=== PATIENT | female | born 1985 | race Two or more races ===

== ENCOUNTER → 2020-08-21 | Outpatient (CLI) | payer OTHER | END | disposition home or self-care (01) | LOC: PRENATAL 08:30 | PROVIDERS: ATTEND Obstetrics & Gynecology Maternal & Fetal Medicine | DX: Z36.89 Encounter for other specified antenatal screening (principal); O36.80X1 Pregnancy with inconclusive fetal viability, fetus 1; Z3A.12 12 weeks gestation of pregnancy ==

== ENCOUNTER → 2020-10-06 | Outpatient (CLI) | payer OTHER | END | disposition home or self-care (01) | LOC: PRENATAL 08:00 | PROVIDERS: ATTEND Obstetrics & Gynecology Maternal & Fetal Medicine | DX: O35.0XX1 Maternal care for (suspected) central nervous system malformation in fetus, fetus 1 (principal); O35.3XX1 Maternal care for (suspected) damage to fetus from viral disease in mother, fetus 1; O98.512 Other viral diseases complicating pregnancy, second trimester; Z36.89 Encounter for other specified antenatal screening; Z3A.19 19 weeks gestation of pregnancy ==

== ENCOUNTER 2020-12-15 15:20 | Outpatient (CLI) | payer OTHER | END 2020-12-15 15:35 | disposition home or self-care (01) | LOC: NST 15:20 | PROVIDERS: ATTEND Specialist | DX: Z34.03 Encounter for supervision of normal first pregnancy, third trimester (principal) ==

== ENCOUNTER → 2021-02-08 | Outpatient (CLI) | payer OTHER | END | disposition home or self-care (01) | LOC: PRENATAL 15:49 | PROVIDERS: ATTEND Obstetrics & Gynecology Maternal & Fetal Medicine | DX: O36.8131 Decreased fetal movements, third trimester, fetus 1 (principal); O26.843 Uterine size-date discrepancy, third trimester; O35.0XX1 Maternal care for (suspected) central nervous system malformation in fetus, fetus 1; Z36.89 Encounter for other specified antenatal screening; Z3A.37 37 weeks gestation of pregnancy ==

== ENCOUNTER 2021-02-21 15:00 | Inpatient (IN) | payer OTHER ==
[~2021-02-21] VITALS: Ht 165.1 cm; Wt 3.2 kg
[2021-03-04] MEDS ORDERED: IRON325 MG PO (21:10)
[2021-03-04] MEDS ORDERED: PRENATAL TABLE1 EAC1 PO (21:10)
[2021-03-04] MEDS ORDERED: FOLIC ACID0.8 M1 PO (21:10)
== END 2021-03-08 13:06 | disposition home or self-care (01) | DRG 788 ==
LOC: LDR 03-01 15:00 → OB/GYN 03-05 17:28
PROVIDERS: ADMIT Specialist; ATTEND Specialist
PROC: 3E0DXGC Introduction of Other Therapeutic Substance into Mouth and Pharynx, External Approach (ICD-10-PCS; 2021-03-04)
PROC: 4A1HXFZ Monitoring of Products of Conception, Cardiac Rhythm, External Approach (ICD-10-PCS; 2021-03-04)
PROC: 10D00Z1 Extraction of Products of Conception, Low, Open Approach (ICD-10-PCS; principal; 2021-03-05 15:00)
DX: O61.0 Failed medical induction of labor (principal); O48.0 Post-term pregnancy; Z37.0 Single live birth; Z3A.40 40 weeks gestation of pregnancy; Z20.822 Contact with and (suspected) exposure to COVID-19

== ENCOUNTER 2021-02-28 10:27 | Outpatient (CLI) | payer OTHER | END 2021-02-28 10:32 | disposition home or self-care (01) | LOC: LAB 10:27 | PROVIDERS: ATTEND Specialist | DX: N30.00 Acute cystitis without hematuria (principal); Z34.03 Encounter for supervision of normal first pregnancy, third trimester ==

== ENCOUNTER → 2021-02-28 | Outpatient (CLI) | payer OTHER ==
[~2021-02-28] MED LIST: FOLIC ACID0.8 M1 PO; IRON325 MG PO; PRENATAL TABLE1 EAC1 PO
== END | disposition home or self-care (01) ==
LOC: PRENATAL 09:00
PROVIDERS: ATTEND Obstetrics & Gynecology Maternal & Fetal Medicine
DX: O26.843 Uterine size-date discrepancy, third trimester (principal); O36.8131 Decreased fetal movements, third trimester, fetus 1; O35.0XX1 Maternal care for (suspected) central nervous system malformation in fetus, fetus 1; Z36.89 Encounter for other specified antenatal screening; Z3A.39 39 weeks gestation of pregnancy

== ENCOUNTER 2024-06-03 11:01 | Outpatient (CLI) | payer OTHER | END 2024-06-03 11:58 | disposition home or self-care (01) | LOC: NST 11:01 | PROVIDERS: ATTEND Obstetrics & Gynecology Maternal & Fetal Medicine | DX: Z34.83 Encounter for supervision of other normal pregnancy, third trimester (principal) ==

== ENCOUNTER 2024-06-08 11:30 | Outpatient (CLI) | payer OTHER | END 2024-06-08 13:15 | disposition home or self-care (01) | LOC: NST 11:30 | PROVIDERS: ATTEND Obstetrics & Gynecology | DX: Z34.83 Encounter for supervision of other normal pregnancy, third trimester (principal) ==

== ENCOUNTER 2024-06-15 10:42 | Outpatient (CLI) | payer OTHER | END 2024-06-15 11:35 | disposition home or self-care (01) | LOC: NST 10:42 | PROVIDERS: ATTEND Obstetrics & Gynecology Gynecology | DX: Z34.83 Encounter for supervision of other normal pregnancy, third trimester (principal) ==

== ENCOUNTER 2024-06-24 09:53 | Outpatient (CLI) | payer OTHER | END 2024-06-24 13:07 | disposition home or self-care (01) | LOC: NST 09:53 | PROVIDERS: ATTEND Obstetrics & Gynecology Gynecology | DX: Z34.83 Encounter for supervision of other normal pregnancy, third trimester (principal) ==

== ENCOUNTER 2024-06-24 13:29 | Inpatient (IN) | payer OTHER ==
[~2024-06-24] VITALS: Ht 165.1 cm; Wt 2.3 kg
[2024-06-24 14:41] LABS: URINE APPEARANCE Clear; URINE BILIRRUBIN Negative (NEGATIVE); URINE BLOOD Negative; URINE COLOR Yellow; URINE GLUCOSE Negative (NEGATIVE); URINE KETONE Trace (NEGATIVE); URINE LEUKOCYTE Trace; URINE NITRATE Negative; URINE PROTEIN Negative (NEGATIVE)
[2024-06-24 14:43] LABS: HEMOGLOBIN 12.3 g/dL (12.0-15.00); MEAN CELL VOLUME 84.1 fL (80.00-100.00); MEAN CORPUSCULAR HEMOGLOBIN 28.7 pg (27.00-32.0); MEAN CORPUSCULAR HGB CONC 34.2 g/dl (32.0-36.0); RED BLOOD COUNT 4.29 M/uL (4.00-6.00)
[2024-06-24 14:45] LABS: URINE BACTERIA 5641.9 uL (0.0-1933); URINE RBC 11.4 uL (0.0-20.8)
[2024-06-24 14:45] LABS: PLATELET COUNT 163 K/uL (150-450); RED CELL DISTRIBUTION WIDTH 16.7 % (11.5-14.5)
[2024-06-24 15:06] LABS: INR < 0.93; PARTIAL THROMBOPLASTIN TIME 24.8 SECONDS (22.0-34.0)
[2024-06-24 15:42] LABS: ALBUMIN 2.7 gm/dL (3.4-5.0); BILIRUBIN TOTAL 0.37 mg/dL (0.3-1.2); CALCIUM 9.3 mg/dL (8.5-10.1); CREATININE SERUM 0.59 mg/dL (0.55-1.02); GFR 114.69; GLOBULINA 3.2 G/DL (2.4-3.5); POTASSIUM 4.77 mEq/L (3.5-5.1); TOTAL PROTEIN 5.9 gm/dL (6.4-8.2)
[2024-06-24 15:55] LABS: URINE CAST 0.91 uL (0.0-1.40)
[2024-06-30 08:26] VITALS: BP 117/75
[2024-06-30] MEDS ORDERED: CEFAZOLIN SODIUM 1,000 MG VIAL IV ONE (11:45)
[2024-06-30] MEDS ORDERED: CITRIC ACID/SODIUM CITRATE 30 ML BLIST.PACK PO ONE (11:45)
[2024-06-30] MEDS ORDERED: OXYTOCIN 10 UNITS/ML VIAL IV ONE (12:30)
[2024-06-30] MEDS ORDERED: ERYTHROMYCIN BASE OPHT 1GM EACH TUBE OP ONE (12:30)
[2024-06-30] MEDS ORDERED: OXYTOCIN 1,000 ML IV ONE (13:15)
[2024-06-30] MEDS ORDERED: RINGERS SOLUTION,LACTATED 1,000 ML IV SCH (13:15)
[2024-06-30] MEDS ORDERED: MORPHINE SULFATE 4 MG/ML CARTRIDGE IV PRN (13:15)
[2024-06-30] MEDS ORDERED: KETOROLAC TROMETHAMINE 30 MG VIAL IV SCH (14:00)
[2024-06-30] MEDS ORDERED: ACETAMINOPHEN 500 MG GEL..CAP PO SCH (14:00)
[2024-06-30] MEDS ORDERED: MORPHINE SULFATE 4 MG/ML VIAL IV ONE (14:05)
[2024-06-30] MEDS ORDERED: SIMETHICONE 125 MG CAPSULE PO SCH (17:00)
[2024-06-30] MEDS ORDERED: GABAPENTIN 300 MG CAPSULE PO SCH (17:00)
[2024-06-30] MEDS ORDERED: PROMETHAZINE HCL 25 MG/ML AMPUL IM PRN (18:00)
[2024-06-30] MEDS ORDERED: MEPERIDINE HCL/PF 25 MG/ML VIAL IM PRN (18:00)
[2024-06-30] MEDS ORDERED: ONDANSETRON HCL 2 MG/ML VIAL IV SCH (18:00)
[2024-06-30 18:51] VITALS: BP 141/80
[2024-07-01] VITALS: BP 124/78
[2024-07-01 07:16] LABS: HEMATOCRIT 30.4 % (36.0-45.00); HEMOGLOBIN 10.5 g/dL (12.0-15.00); MEAN CELL VOLUME 84.7 fL (80.00-100.00); MEAN CORPUSCULAR HEMOGLOBIN 29.3 pg (27.00-32.0); MEAN CORPUSCULAR HGB CONC 34.6 g/dl (32.0-36.0); PLATELET COUNT 131 K/uL (150-450); RED BLOOD COUNT 3.59 M/uL (4.00-6.00); RED CELL DISTRIBUTION WIDTH 17.5 % (11.5-14.5)
[2024-07-01 08:00] VITALS: BP 115/75
[2024-07-01] MEDS ORDERED: KETOROLAC TROMETHAMINE 10 MG TABLET PO SCH (08:00)
[2024-07-01] MEDS ORDERED: OxyCODONE HCL 5 MG TABLET (ROXICODONE) PO PRN (08:00)
[2024-07-01] MEDS ORDERED: DOCUSATE SODIUM 100MG CAP PO SCH (09:00)
[2024-07-01 16:00] VITALS: BP 126/80
[2024-07-02 02:17] VITALS: BP 128/77
[2024-07-02 08:58] VITALS: BP 138/86
[2024-07-02 14:28] LABS: PH,URINE 6.5 (5.0-8.0); URINE APPEARANCE Cloudy; URINE BILIRRUBIN Negative (NEGATIVE); URINE BLOOD Large; URINE COLOR Orange; URINE GLUCOSE Negative (NEGATIVE); URINE KETONE Negative (NEGATIVE); URINE LEUKOCYTE Trace; URINE NITRATE Negative; URINE PROTEIN 30 (NEGATIVE)
[2024-07-02 14:30] LABS: HEMATOCRIT 33.8 % (36.0-45.00); HEMOGLOBIN 11.3 g/dL (12.0-15.00); MEAN CELL VOLUME 86.5 fL (80.00-100.00); MEAN CORPUSCULAR HGB CONC 33.6 g/dl (32.0-36.0); PLATELET COUNT 168 K/uL (150-450); RED CELL DISTRIBUTION WIDTH 16.9 % (11.5-14.5)
[2024-07-02 14:31] LABS: URINE BACTERIA 437.2 uL (0.0-1933); URINE EPITHELIAL CELLS 49.6 uL (0.0-38.8); URINE RBC 6939.8 uL (0.0-20.8); URINE WBC 25.8 uL (0.0-23.2)
[2024-07-02 15:07] LABS: ALBUMIN 2.2 gm/dL (3.4-5.0); BILIRUBIN TOTAL 0.23 mg/dL (0.3-1.2); CREATININE SERUM 0.74 mg/dL (0.55-1.02); GFR 88.31; GLOBULINA 3.1 G/DL (2.4-3.5); POTASSIUM 5.21 mEq/L (3.5-5.1); TOTAL PROTEIN 5.3 gm/dL (6.4-8.2)
[2024-07-02 16:00] VITALS: BP 145/85
[2024-07-02 20:00] VITALS: BP 140/80
[2024-07-02] MEDS ORDERED: MAGNESIUM SULFATE IN WATER 0.04 GM/ML IV.SOLN IV STA ×2 (21:08→21:09)
[2024-07-03 02:36] VITALS: BP 109/70
[2024-07-03 08:00] VITALS: BP 133/80
[2024-07-03] MEDS ORDERED: LABETALOL HCL 100 MG TABLET PO NR (11:00)
[2024-07-03] MEDS ORDERED: LABETALOL HCL 100 MG TABLET PO SCH (17:00)
== END 2024-07-03 17:46 | disposition home or self-care (01) | DRG 785 ==
LOC: O/R 06-30 07:06 → OB/GYN 06-30 09:05
PROVIDERS: Obstetrics & Gynecology; ADMIT Obstetrics & Gynecology Gynecology; ATTEND Obstetrics & Gynecology Gynecology
PROC: 0UB70ZZ Excision of Bilateral Fallopian Tubes, Open Approach (ICD-10-PCS; 2024-06-30)
PROC: 4A1HXCZ Monitoring of Products of Conception, Cardiac Rate, External Approach (ICD-10-PCS; 2024-06-30)
PROC: 10D00Z1 Extraction of Products of Conception, Low, Open Approach (ICD-10-PCS; principal; 2024-06-30 09:05)
DX: O34.211 Maternal care for low transverse scar from previous cesarean delivery (principal); O32.9XX2 Maternal care for malpresentation of fetus, unspecified, fetus 2; O30.043 Twin pregnancy, dichorionic/diamniotic, third trimester; Z3A.37 37 weeks gestation of pregnancy; Z37.2 Twins, both liveborn; Z20.822 Contact with and (suspected) exposure to COVID-19; Z30.2 Encounter for sterilization

== ENCOUNTER 2024-07-06 01:12 | Inpatient (IN) | payer OTHER ==
[~2024-07-06] VITALS: Ht 165.1 cm; Wt 90.7 kg
[2024-07-06] MEDS ORDERED: LABETALOL HCL200 MG PO (01:29)
[2024-07-06] MEDS ORDERED: RINGERS SOLUTION,LACTATED 500 ML IV STA (02:14)
[2024-07-06] MEDS ORDERED: hydrALAZINE HCL 50 MG TABLET PO STA (02:14)
[2024-07-06 02:39] LABS: URINE APPEARANCE Clear; URINE BILIRRUBIN Negative (NEGATIVE); URINE BLOOD Negative; URINE COLOR Yellow; URINE GLUCOSE Negative (NEGATIVE); URINE KETONE Negative (NEGATIVE); URINE LEUKOCYTE Small; URINE NITRATE Negative; URINE PROTEIN Negative (NEGATIVE)
[2024-07-06] MEDS ORDERED: ACETAMINOPHEN 500 MG GEL..CAP PO STA (02:41)
[2024-07-06 02:43] LABS: URINE BACTERIA 159.9 uL (0.0-1933); URINE EPITHELIAL CELLS 14.3 uL (0.0-38.8); URINE WBC 55.3 uL (0.0-23.2)
[2024-07-06 02:46] LABS: HEMOGLOBIN 12.3 g/dL (12.0-15.00); MEAN CELL VOLUME 86.7 fL (80.00-100.00); MEAN CORPUSCULAR HEMOGLOBIN 29.6 pg (27.00-32.0); MEAN CORPUSCULAR HGB CONC 34.2 g/dl (32.0-36.0); PLATELET COUNT 212 K/uL (150-450); RED BLOOD COUNT 4.15 M/uL (4.00-6.00); RED CELL DISTRIBUTION WIDTH 17.2 % (11.5-14.5)
[2024-07-06 03:13] LABS: ALBUMIN 2.8 gm/dL (3.4-5.0); BILIRUBIN TOTAL 0.37 mg/dL (0.3-1.2); CALCIUM 8.8 mg/dL (8.5-10.1); CREATININE SERUM 0.71 mg/dL (0.55-1.02); GFR 92.63; GLOBULINA 3.4 G/DL (2.4-3.5); POTASSIUM 4.06 mEq/L (3.5-5.1); TOTAL PROTEIN 6.2 gm/dL (6.4-8.2)
[2024-07-06] MEDS ORDERED: MAGNESIUM SULFATE IN WATER 4 GM/100 ML PIGGYBACK IV SCH (08:00)
[2024-07-06] MEDS ORDERED: MAGNESIUM SULFATE IN WATER 500 ML IV SCH (08:00)
[2024-07-06] MEDS ORDERED: FUROsemide 20 MG/2 ML VIAL IV STA (08:10)
[2024-07-06] MEDS ORDERED: LABETALOL HCL 200 MG TABLET PO SCH (09:00)
[2024-07-06 09:50] VITALS: BP 130/84
[2024-07-06 12:55] VITALS: BP 122/73
[2024-07-06] MEDS ORDERED: ACETAMINOPHEN 500 MG GEL..CAP PO PRN (13:00)
[2024-07-06] MEDS ORDERED: RINGERS SOLUTION,LACTATED 1,000 ML IV SCH (13:15)
[2024-07-06 15:09] VITALS: BP 127/76
[2024-07-06] MEDS ORDERED: BUTALB/ACETAMINOPHEN/CAFFEINE 1 TAB TABLET PO PRN (16:00)
[2024-07-06 18:58] VITALS: BP 124/72
[2024-07-06 23:27] VITALS: BP 119/78
[2024-07-07 00:26] VITALS: BP 121/72
[2024-07-07 04:40] VITALS: BP 125/79
[2024-07-07 06:04] LABS: HEMATOCRIT 34.8 % (36.0-45.00); HEMOGLOBIN 11.8 g/dL (12.0-15.00); MEAN CELL VOLUME 85.8 fL (80.00-100.00); MEAN CORPUSCULAR HGB CONC 33.8 g/dl (32.0-36.0); PLATELET COUNT 236 K/uL (150-450); RED BLOOD COUNT 4.06 M/uL (4.00-6.00); RED CELL DISTRIBUTION WIDTH 17.2 % (11.5-14.5)
[2024-07-07 06:42] LABS: ALBUMIN 2.6 gm/dL (3.4-5.0); BILIRUBIN TOTAL 0.39 mg/dL (0.3-1.2); CALCIUM 7.8 mg/dL (8.5-10.1); CREATININE SERUM 0.71 mg/dL (0.55-1.02); GFR 92.63; GLOBULINA 3.1 G/DL (2.4-3.5); POTASSIUM 3.98 mEq/L (3.5-5.1); TOTAL PROTEIN 5.7 gm/dL (6.4-8.2)
[2024-07-07 07:33] VITALS: BP 125/69
[2024-07-07 14:35] LABS: ALBUMIN 2.7 gm/dL (3.4-5.0); BILIRUBIN TOTAL 0.3 mg/dL (0.3-1.2); CALCIUM 7.4 mg/dL (8.5-10.1); CREATININE SERUM 0.74 mg/dL (0.55-1.02); GFR 88.31; GLOBULINA 3.4 G/DL (2.4-3.5); POTASSIUM 4.83 mEq/L (3.5-5.1); TOTAL PROTEIN 6.1 gm/dL (6.4-8.2)
[2024-07-07 14:52] VITALS: BP 138/76; O2SAT 98
== END 2024-07-07 15:26 | disposition home or self-care (01) | DRG 776 ==
LOC: ER 01:13 → SEC-K 08:14 → LDR 08:14 → OB/GYN 07-07 10:27
PROVIDERS: Obstetrics & Gynecology; ADMIT Obstetrics & Gynecology Maternal & Fetal Medicine; ATTEND Obstetrics & Gynecology Maternal & Fetal Medicine
PROC: B246ZZZ Ultrasonography of Right and Left Heart (ICD-10-PCS; principal; 2024-07-06)
DX: O14.95 Unspecified pre-eclampsia, complicating the puerperium (principal); Z20.822 Contact with and (suspected) exposure to COVID-19

== ENCOUNTER 2024-07-27 10:25 | Emergency (ER) | payer OTHER ==
[~2024-07-27] VITALS: Ht 165.1 cm; Wt 77.1 kg
[~2024-07-27 10:25] MED LIST changes: +LABETALOL HCL200 MG PO
[2024-07-27 13:30] LABS: HEMATOCRIT 41.1 % (36.0-45.00); HEMOGLOBIN 14.1 g/dL (12.0-15.00); MEAN CELL VOLUME 84.8 fL (80.00-100.00); MEAN CORPUSCULAR HGB CONC 34.2 g/dl (32.0-36.0); PLATELET COUNT 191 K/uL (150-450); RED BLOOD COUNT 4.84 M/uL (4.00-6.00)
[2024-07-27 13:58] LABS: ALBUMIN 3.8 gm/dL (3.4-5.0); BILIRUBIN TOTAL 0.47 mg/dL (0.3-1.2); CALCIUM 9.3 mg/dL (8.5-10.1); CREATININE SERUM 0.85 mg/dL (0.55-1.02); GFR 75.26; GLOBULINA 3.5 G/DL (2.4-3.5); POTASSIUM 4.19 mEq/L (3.5-5.1); TOTAL PROTEIN 7.3 gm/dL (6.4-8.2)
== END 2024-07-27 14:15 | disposition home or self-care (01) ==
LOC: ER 10:27
PROVIDERS: General Practice
DX: R10.9 Unspecified abdominal pain (principal); Z91.013 Allergy to seafood; Z91.018 Allergy to other foods